=== PATIENT | male | born 1995 | race Caucasian/White ===

== ENCOUNTER 2020-10-05 22:16 | Emergency (ER) | payer OTHER ==
[2020-10-06] MEDS ORDERED: DICLOFENAC SODI75 MG PO (00:57)
== END 2020-10-06 01:14 | disposition home or self-care (01) ==
LOC: FER 22:16
DX: F07.81 Postconcussional syndrome (principal); Z88.0 Allergy status to penicillin; Z86.79 Personal history of other diseases of the circulatory system; Y04.2XXA Assault by strike against or bumped into by another person, initial encounter; Y92.009 Unspecified place in unspecified non-institutional (private) residence as the place of occurrence of the external cause
CPT/HCPCS: 70450; 70486; 96372; J0780; J1885